=== PATIENT | male | born 1975 | race Caucasian/White ===

== ENCOUNTER 2016-12-15 07:47 | Inpatient (IN) | payer OTHER ==
[~2016-12-15] VITALS: Ht 175.3 cm; Wt 116.6 kg
[2016-12-15] MEDS ORDERED: ACET-2744 PO (08:03)
[2016-12-15] MEDS ORDERED: ATOR40TA28 PO (08:03)
[2016-12-15] MEDS ORDERED: TRAM50TA4 PO (08:03)
[2016-12-15] MEDS ORDERED: CARI350 PO (08:03)
[2016-12-15] MEDS ORDERED: hydrocodone PO (08:03)
[2016-12-15] MEDS ORDERED: HydrOXYzine PAMOATE 50 MG CAPSULE PO ONE (08:15)
[2016-12-15] MEDS ORDERED: IBUPROFEN 600 MG TABLET PO ONE (08:15)
[2016-12-15 08:33] LABS: BASOPHILS % (AUTO) 0.2 % (0.0-2.0); EOSINOPHILS % (AUTO) 0.6 % (1.0-6.0); HEMATOCRIT 44.5 % (41-53); HEMOGLOBIN 15.2 g/dL (13.5-17.5); LYMPHOCYTES # (AUTO) 2.1 K/uL (1.0-4.8); MEAN CORPUSCULAR HEMOGLOBIN 27.4 pg (26.0-34.0); MEAN CORPUSCULAR HGB CONC 34.2 G/dL (31.0-37.0); MEAN CORPUSCULAR VOLUME 80 fL (80-100); MONOCYTES # (AUTO) 0.8 K/uL (0.1-1.0); MONOCYTES % (AUTO) 6.4 % (2.0-9.0); NEUTROPHILS # (AUTO) 8.9 K/uL (1.8-7.7); NEUTROPHILS % (AUTO) 74.8 % (40.0-70.0); PLATELET COUNT (AUTO) 325 K/uL (150-450); RED BLOOD CELL COUNT(AUTO) 5.56 MIL/uL (4.50-5.90); RED CELL DISTRIBUTION WIDTH 13.5 % (11.5-14.5); WHITE BLOOD COUNT (AUTO) 11.8 K/uL (4.5-11.0)
[2016-12-15 08:43] LABS: ANION GAP 13 mmol/L (8-16); CALCIUM, TOTAL 9.7 mg/dL (8.8-10.5); CARBON DIOXIDE 25 mmol/L (22-29); CHLORIDE 104 mmol/L (98-107); CREATININE 0.87 mg/dL (0.60-1.30); GLOMERULAR FILTR. RATE CALC > 60 mL/min (>60); POTASSIUM 4.1 mmol/L (3.5-5.1); SODIUM SERUM 142 mmol/L (136-145); UREA NITROGEN, BLOOD 14 mg/dL (7-18)
[2016-12-15 08:49] LABS: ALANINE AMINOTRANSFERASE 60 U/L (12-78); ALBUMIN 4.6 g/dL (3.4-5.0); ASPARTATE AMINOTRANSFERASE 19 U/L (15-37); BILIRUBIN,TOTAL 0.4 mg/dL (0.1-1.0); TOTAL PROTEIN, SERUM 8.3 g/dL (6.4-8.2)
[2016-12-15] MEDS ORDERED: ZOLPIDEM TARTRATE 10 MG TABLET PO PRN (10:30)
[2016-12-15] MEDS ORDERED: HALOPERIDOL 5 MG TABLET PO PRN (10:30)
[2016-12-15] MEDS ORDERED: LORazepam 2 MG TABLET PO PRN (10:30)
[2016-12-15 16:04] VITALS: BP 153/90
[2016-12-15] MEDS ORDERED: IBUPROFEN 600 MG TABLET PO PRN (19:00)
[2016-12-15 20:10] VITALS: BP 150/87
[2016-12-15] MEDS: ACETAMINOPHEN 325 MG TABLET PO PRN (20:14)
[2016-12-15] MEDS: ATORVASTATIN CALCIUM 40 MG TABLET PO SCH (20:14)
[2016-12-15 21:10] VITALS: BP 140/92
[2016-12-15] MEDS ORDERED: CloNIDine HCL 0.1 MG TABLET PO PRN (22:00)
[2016-12-16 03:33] VITALS: BP 156/98
[2016-12-16] MEDS: ACETAMINOPHEN 325 MG TABLET PO PRN ×2 (03:38→09:13)
[2016-12-16 07:37] LABS: APPEARANCE,URINE CLEAR (CLEAR); GLUCOSE, URINE (UA) NEGATIVE (NEGATIVE); KETONES,URINE NEGATIVE (NEGATIVE); LEUKOCYTE ESTERASE ,URINE NEGATIVE (NEGATIVE); OCCULT BLOOD,URINE NEGATIVE (NEGATIVE); PH,URINE 6.5 (5.0-8.0); PROTEIN,URINE NEGATIVE (NEGATIVE)
[2016-12-16 07:38] LABS: ADD UA MICROSCOPIC NO
[2016-12-16 09:13] VITALS: BP 144/103
[2016-12-16] MEDS ORDERED: HYDROCODONE/ACETAMINOPHEN 5-325 MG TABLET PO PRN (10:45)
[2016-12-16] MEDS ORDERED: LOPERAMIDE HCL 2 MG CAPSULE PO PRN (10:45)
[2016-12-16] MEDS: RisperiDONE 1 MG TABLET PO SCH (16:08)
[2016-12-16 17:32] VITALS: BP 166/112
[2016-12-16 19:00] VITALS: BP 137/90
[2016-12-16] MEDS: ATORVASTATIN CALCIUM 40 MG TABLET PO SCH (20:33)
[2016-12-17] VITALS (7 sets, daily range): BP systolic 125–146; BP diastolic 77–92
[2016-12-17] MEDS: ACETAMINOPHEN 325 MG TABLET PO PRN ×4 (00:04→20:30)
[2016-12-17] MEDS: AmLODIPine BESYLATE 5 MG TABLET PO SCH (08:29)
[2016-12-17] MEDS: RisperiDONE 1 MG TABLET PO SCH ×2 (08:29→16:15)
[2016-12-17] MEDS: ATORVASTATIN CALCIUM 40 MG TABLET PO SCH (20:25)
[2016-12-18 03:10] VITALS: BP 128/76
[2016-12-18] MEDS: ACETAMINOPHEN 325 MG TABLET PO PRN ×2 (03:16→09:25)
[2016-12-18] MEDS: RisperiDONE 1 MG TABLET PO SCH (09:03)
[2016-12-18] MEDS: AmLODIPine BESYLATE 5 MG TABLET PO SCH (09:03)
[2016-12-18 09:26] VITALS: BP 154/92
[2016-12-18] MEDS ORDERED: AMLO-511 PO (11:38)
[2016-12-18] MEDS ORDERED: RISP1 PO (11:38)
== END 2016-12-18 13:00 | disposition home or self-care (01) | DRG 885 ==
LOC: EEVIPCON 07:48 → EMS 07:48 → 3EI 13:22
DX: F29 Unspecified psychosis not due to a substance or known physiological condition (principal); G93.40 Encephalopathy, unspecified; F32.9 Major depressive disorder, single episode, unspecified; I10 Essential (primary) hypertension; E78.5 Hyperlipidemia, unspecified; M19.90 Unspecified osteoarthritis, unspecified site; M54.30 Sciatica, unspecified side; D72.829 Elevated white blood cell count, unspecified; G89.29 Other chronic pain; E66.9 Obesity, unspecified; Z79.899 Other long term (current) drug therapy; Z98.84 Bariatric surgery status; Z82.49 Family history of ischemic heart disease and other diseases of the circulatory system; Z90.89 Acquired absence of other organs; Z68.38 Body mass index [BMI] 38.0-38.9, adult
CPT/HCPCS: 99285; G0480